=== PATIENT | female | born 1955 | race Caucasian/White ===

== ENCOUNTER 2018-05-17 14:41 | Emergency (ER) | payer MEDICAID ==
[~2018-05-17] VITALS: Ht 165.1 cm; Wt 148.1 kg
[~2018-05-17 14:41] MED LIST: ALBU6.7H INH; LEVO750T26 PO; PRED10TA14 PO; [UNRECOGNIZED DRUG - CODE] TP
[2018-05-17 14:43] VITALS: BP 144/87
[2018-05-17 15:16] LABS: BASOPHILS # (AUTO) 0.09 x10^3/uL (0-0.1); BASOPHILS % (AUTO) 1 % (0-1); EOSINOPHILS # (AUTO) 0.48 x10^3/uL (0-0.4); EOSINOPHILS % (AUTO) 5 % (1-7); LYMPHOCYTES # (AUTO) 2.25 x10^3/uL (1-3.4); LYMPHOCYTES % (AUTO) 23 % (22-44); MD NO; MEAN CORPUSCULAR HEMOGLOBIN 27.1 pg (27.0-34.8); MEAN CORPUSCULAR HGB CONC 32.9 g/dL (32.4-35.8); MEAN CORPUSCULAR VOLUME 82.5 fL (80-100); MEAN PLATELET VOLUME 9.6 fL (7.4-10.4); MONOCYTES # (AUTO) 0.74 x10^3/uL (0.2-0.8); MONOCYTES % (AUTO) 7 % (2-9); NEUTROPHILS # (AUTO) 6.43 x10^3/uL (1.8-6.8); NEUTROPHILS % (AUTO) 64 % (42-75); PLATELET COUNT 253 x10^3/uL (130-400); RED CELL DISTRIBUTION WIDTH 17.4 % (9.6-15.2)
[2018-05-17 15:27] LABS: ALANINE AMINOTRANSFERASE 19 U/L (12-78); ALBUMIN 3.4 g/dL (3.4-5.0); ANION GAP 8 mmol/L (5-15); CALCIUM 9.4 mg/dL (8.5-10.1); CHLORIDE 107 mmol/L (98-107); CREATININE 0.85 mg/dL (0.55-1.02)
[2018-05-17 15:30] LABS: ALKALINE PHOSPHATASE 115 U/L (45-117); BILIRUBIN,TOTAL 0.3 mg/dL (0.2-1.0)
== END 2018-05-17 17:30 | disposition home or self-care (01) ==
LOC: ED 17:06
DX: I89.0 Lymphedema, not elsewhere classified (principal); Z85.828 Personal history of other malignant neoplasm of skin
CPT/HCPCS: 36415; 80053; 85025; 99284

== ENCOUNTER 2019-05-19 08:21 | Emergency (ER) | payer MEDICARE, MEDICAID ==
[~2019-05-19] VITALS: Ht 175.3 cm; Wt 136.4 kg
[~2019-05-19 08:21] MED LIST changes: -ALBU6.7H INH; +ALBU6.7H8 INH
[2019-05-19 08:25] VITALS: BP 148/81
--- NOTE | 2019-05-19 08:31 | NUR ---
BIB EMS FOR C/O BILAT LOWER LEG CELLULITIS. WAS SEEN AT [facility] 2 DAYS AGO. WAS GIVEN RX FOR BACTRIM DS DID NOT FILL IT. HERE FOR AN ODOR AND WAS TOLD SHE COULDN'T RIDE THE BUS. ROMERO MANCILLA AT BEDSIDE FOR EVAL. PT RESTING ON GURNEY. NADN. VSS. WARM BLANKET PROVIDED.
--- NOTE | 2019-05-19 08:59 | NUR ---
PER ERP DR. DICKEY PT OKAY TO TAKE SHOWER. ALL SUPPLIES PROVIDED FOR PT. PT AMBULATORY W/ STEADY GAIT. CURRENTLY PT TAKING SHOWER.
[2019-05-19] MEDS ORDERED: SULFAMETH./TRIMETHOPRIM DS 800MG/160MG TABLET PO ONE (09:00)
[2019-05-19] MEDS ORDERED: SULFAMETH./TRIMETHOPRIM DS 800MG/160MG TABLET ONE (09:17)
--- NOTE | 2019-05-19 09:41 | NUR ---
PT BACK IN ROOM AFTER SHOWER. PT PROVIDED W/ TO GO MEAL TRAY. MEDICATED PER JUL. BUS PASS PROVIDED. DISCUSSED DC PAPERWORK. ALL QUESTIONS ANSWERED. PT AWARE OF POC FOR DC.
== END 2019-05-19 10:27 | disposition home or self-care (01) ==
LOC: ED 08:47
DX: L03.115 Cellulitis of right lower limb (principal); L03.116 Cellulitis of left lower limb; I25.2 Old myocardial infarction
CPT/HCPCS: 99283

== ENCOUNTER 2020-03-19 22:51 | Emergency (ER) | payer MEDICARE, MEDICAID ==
[~2020-03-19] VITALS: Ht 165.1 cm; Wt 161.8 kg
[~2020-03-19 22:51] MED LIST changes: +FLUT16SP24 NAS; +FURO20TA3 PO; +SULF1TAB24 PO; +TRAM50TA2 PO
[2020-03-19 23:35] LABS: BASOPHILS % (AUTO) 1 % (0-1); EOSINOPHILS % (AUTO) 6 % (1-7); LYMPHOCYTES % (AUTO) 24 % (22-44); MEAN CORPUSCULAR HEMOGLOBIN 27.3 pg (27.0-34.8); MEAN CORPUSCULAR HGB CONC 32.5 g/dL (32.4-35.8); MEAN PLATELET VOLUME 8.9 fL (7.4-10.4); MONOCYTES % (AUTO) 10 % (2-9); NEUTROPHILS % (AUTO) 60 % (42-75); PLATELET COUNT 243 x10^3/uL (130-400); RED BLOOD COUNT 4.93 x10^6/uL (3.82-5.3); RED CELL DISTRIBUTION WIDTH 16.5 % (9.6-15.2)
[2020-03-19 23:42] LABS: MD NO
--- NOTE | 2020-03-19 23:45 | NUR ---
65 YO CC OF R ANKLE AND FOOT PAIN WITH SWELLING AND WEEPING, WORSENING OVER LAST 4 DAYS. PT RECENTLY HERE FOR THE SAME THING. 01/06 PAIN.
[2020-03-19 23:47] LABS: ANION GAP 4 mmol/L (5-15); CALCIUM 9.9 mg/dL (8.5-10.1); CHLORIDE 107 mmol/L (98-107); CREATININE 0.75 mg/dL (0.55-1.02)
[2020-03-20] MEDS ORDERED: KETOROLAC 30 MG/1 ML IM ONE
[2020-03-20] MEDS ORDERED: KETOROLAC 30 MG/1 ML ONE (00:23)
--- NOTE | 2020-03-20 00:30 | NUR ---
US IN ROOM
[2020-03-20 01:30] VITALS: BP 112/59
--- NOTE | 2020-03-20 01:39 | NUR ---
TASK RN: PT ATTACHED TO VS MONITORS. PT PLACED ON 4L NC TO MAINTAIN OXYGEN SATURATION ABOVE 94%. PT VS UPDATED IN EMR.
[2020-03-20] MEDS ORDERED: NEOSPORIN OINT. PKT 1 PACKET ONE (02:25)
== END 2020-03-20 03:15 ==
LOC: ED 23:46
DX: S80.921A Unspecified superficial injury of right lower leg, initial encounter (principal); M79.89 Other specified soft tissue disorders; M79.661 Pain in right lower leg; I25.2 Old myocardial infarction; X58.XXXA Exposure to other specified factors, initial encounter; Y93.89 Activity, other specified; Y92.89 Other specified places as the place of occurrence of the external cause; Y99.8 Other external cause status
CPT/HCPCS: 36415; 80048; 85025; 93971; 96372; 99284; J1885

== ENCOUNTER 2020-03-20 23:39 | Emergency (ER) | payer MEDICARE, MEDICAID ==
[~2020-03-20] VITALS: Ht 177.8 cm; Wt 150.0 kg
[2020-03-20 23:44] VITALS: BP 138/91
--- NOTE | 2020-03-21 00:18 | NUR ---
PT AMBULATORY TO ROOM AT THIS TIME, [employer]
--- NOTE | 2020-03-21 00:49 | NUR ---
Drsg placed on pt wound on RLE.
--- NOTE | 2020-03-21 01:30 | NUR ---
PT D/C WITH D/C SUMMARY. PT VERBALIZES UNDERSTANDING OF NEED TO FOLLOW UP WITH PCP DR GOODE. NUMBER PROVIDED TO DR GOODE PER PT REQUEST. PT DENIES ANY OTHER NEEDS PERTAINING TO THIS VISIT AND WHEELS TO REGISTRATION DESK IN WHEELCHAIR FOR D/C HOME.
== END 2020-03-21 01:34 | disposition home or self-care (01) ==
LOC: ED 03-21 00:25
DX: M79.661 Pain in right lower leg (principal); I87.2 Venous insufficiency (chronic) (peripheral); R60.0 Localized edema; I25.2 Old myocardial infarction
CPT/HCPCS: 99283

== ENCOUNTER 2020-04-15 20:17 | Emergency (ER) | payer MEDICARE, MEDICAID ==
[~2020-04-15] VITALS: Ht 175.3 cm; Wt 158.0 kg
[2020-04-15 22:12] LABS: BASOPHILS % (AUTO) 1 % (0-1); EOSINOPHILS % (AUTO) 4 % (1-7); LYMPHOCYTES % (AUTO) 21 % (22-44); MEAN CORPUSCULAR HEMOGLOBIN 27.5 pg (27.0-34.8); MEAN CORPUSCULAR HGB CONC 32.6 g/dL (32.4-35.8); MEAN PLATELET VOLUME 8.8 fL (7.4-10.4); MONOCYTES % (AUTO) 9 % (2-9); NEUTROPHILS % (AUTO) 65 % (42-75); PLATELET COUNT 284 x10^3/uL (130-400); RED CELL DISTRIBUTION WIDTH 16.7 % (9.6-15.2)
[2020-04-15 22:14] LABS: MD NO
[2020-04-15 22:16] LABS: ALANINE AMINOTRANSFERASE 23 U/L (12-78); ALBUMIN 3.3 g/dL (3.4-5.0); ANION GAP 5 mmol/L (5-15); CALCIUM 9.6 mg/dL (8.5-10.1); CHLORIDE 106 mmol/L (98-107); CREATININE 0.71 mg/dL (0.55-1.02)
[2020-04-15 22:18] LABS: ALKALINE PHOSPHATASE 88 U/L (45-117); BILIRUBIN,TOTAL 0.7 mg/dL (0.2-1.0); TOTAL PROTEIN 8.5 g/dL (6.4-8.2)
--- NOTE | 2020-04-15 22:25 | NUR ---
handyx1
--- NOTE | 2020-04-15 23:05 | NUR ---
pt to room from lobby
--- NOTE | 2020-04-15 23:40 | NUR ---
pt here for pain and scaling on lower leg. md at bedside.
--- NOTE | 2020-04-16 00:15 | NUR ---
pt given clean socks and wound cleaned and bandaged. vss. Pt verbalized understanding of discharge papers. pt getting dressed
[2020-04-16 00:48] VITALS: BP 145/97
== END 2020-04-16 00:50 | disposition home or self-care (01) ==
LOC: ED 23:56
DX: R60.0 Localized edema (principal); I25.2 Old myocardial infarction
CPT/HCPCS: 36415; 80053; 85025; 99284

== ENCOUNTER 2020-07-12 22:25 | Emergency (ER) | payer MEDICAID, MEDICARE ==
[~2020-07-12] VITALS: Ht 177.8 cm; Wt 147.7 kg
--- NOTE | 2020-07-12 22:36 | NUR ---
bib ems. pt has increased swelling in her lower extremities and has been oozing blood per patient. swelling present for last 4 years and worse in the last couple days per pt. pt able to undress herself and walk steady to bed. vss, erp at bedside
--- NOTE | 2020-07-12 22:53 | NUR ---
LAB AT BEDSIDE
[2020-07-12 23:14] LABS: ALBUMIN 3.4 g/dL (3.4-5.0); ANION GAP 7 mmol/L (5-15); CALCIUM 9.5 mg/dL (8.5-10.1); CHLORIDE 107 mmol/L (98-107)
[2020-07-12 23:18] LABS: BASOPHILS % (AUTO) 1 % (0-1); EOSINOPHILS % (AUTO) 2 % (1-7); LYMPHOCYTES % (AUTO) 27 % (22-44); MD NO; MEAN CORPUSCULAR HGB CONC 33.2 g/dL (32.4-35.8); MONOCYTES % (AUTO) 10 % (2-9); NEUTROPHILS % (AUTO) 60 % (42-75); PLATELET COUNT 277 x10^3/uL (130-400); RED BLOOD COUNT 5.06 x10^6/uL (3.82-5.3); RED CELL DISTRIBUTION WIDTH 16.7 % (9.6-15.2)
[2020-07-13] VITALS: BP 162/85
--- NOTE | 2020-07-13 | NUR ---
PT UNDERSTANDING OF D/C INSTRUCTIONS, ALL QUESTIONS ANSWERED. REINFORCED FACT THAT PATIENT NEEDS TO KEEP LEGS CLEAN. PT INDEPENDENT GETTING READY AND STEADY AMBULATING.
--- NOTE | 2020-07-13 00:15 | NUR ---
PT AMBULATED TO RESTROOM, WAITING FOR HER TO COME BACK TO FINISH CHANGING AND GET D/C INSTRUCTIONS
== END 2020-07-13 00:51 | disposition home or self-care (01) ==
LOC: ED 07-13 00:45
DX: M79.661 Pain in right lower leg (principal); M79.662 Pain in left lower leg; I25.2 Old myocardial infarction
CPT/HCPCS: 36415; 80048; 82040; 85025; 93970; 99284

== ENCOUNTER 2020-08-23 14:59 | Emergency (ER) | payer MEDICARE, MEDICAID ==
[~2020-08-23] VITALS: Ht 165.1 cm; Wt 147.0 kg
[2020-08-23 15:04] VITALS: BP 101/48
[2020-08-23 15:44] LABS: BASOPHILS % (AUTO) 1 % (0-1); EOSINOPHILS % (AUTO) 3 % (1-7); LYMPHOCYTES % (AUTO) 25 % (22-44); MEAN CORPUSCULAR HEMOGLOBIN 27.5 pg (27.0-34.8); MEAN PLATELET VOLUME 9.2 fL (7.4-10.4); MONOCYTES % (AUTO) 6 % (2-9); NEUTROPHILS % (AUTO) 65 % (42-75); PLATELET COUNT 259 x10^3/uL (130-400); RED BLOOD COUNT 5.38 x10^6/uL (3.82-5.3); RED CELL DISTRIBUTION WIDTH 16.9 % (9.6-15.2)
[2020-08-23 15:45] LABS: MD NO
[2020-08-23 15:52] LABS: ALBUMIN 3.3 g/dL (3.4-5.0); ANION GAP 4 mmol/L (5-15); CALCIUM 9.3 mg/dL (8.5-10.1); CHLORIDE 108 mmol/L (98-107); CREATININE 0.83 mg/dL (0.55-1.02)
--- NOTE | 2020-08-23 15:55 | NUR ---
shorthand teacher note: Pt to room from lobby.
== END 2020-08-23 16:53 ==
LOC: ED 16:22
DX: L03.115 Cellulitis of right lower limb (principal); M79.661 Pain in right lower leg; L97.911 Non-pressure chronic ulcer of unspecified part of right lower leg limited to breakdown of skin; E66.01 Morbid (severe) obesity due to excess calories; Z68.43 Body mass index [BMI] 50.0-59.9, adult
CPT/HCPCS: 36415; 80048; 82040; 85025; 99283; 99284

== ENCOUNTER 2020-10-25 14:10 | Emergency (ER) | payer MEDICAID, MEDICARE ==
[~2020-10-25] VITALS: Ht 177.8 cm; Wt 150.0 kg
[~2020-10-25 14:10] MED LIST changes: +SULF-23 PO; -SULF1TAB24 PO
[2020-10-25 14:18] VITALS: BP 109/45
[2020-10-25 14:48] LABS: BASOPHILS % (AUTO) 1 % (0-1); EOSINOPHILS % (AUTO) 4 % (1-7); LYMPHOCYTES % (AUTO) 25 % (22-44); MEAN CORPUSCULAR HEMOGLOBIN 28.7 pg (27.0-34.8); MEAN CORPUSCULAR HGB CONC 33.9 g/dL (32.4-35.8); MEAN PLATELET VOLUME 8.9 fL (7.4-10.4); MONOCYTES % (AUTO) 9 % (2-9); NEUTROPHILS % (AUTO) 62 % (42-75); PLATELET COUNT 263 x10^3/uL (130-400); RED BLOOD COUNT 4.92 x10^6/uL (3.82-5.3); RED CELL DISTRIBUTION WIDTH 16.2 % (9.6-15.2)
[2020-10-25 14:49] LABS: MD NO
[2020-10-25 15:00] LABS: ALBUMIN 3.1 g/dL (3.4-5.0); ANION GAP 5 mmol/L (5-15); CALCIUM 9.1 mg/dL (8.5-10.1); CHLORIDE 108 mmol/L (98-107); CREATININE 0.76 mg/dL (0.55-1.02)
--- NOTE | 2020-10-25 17:45 | NUR ---
EMPLOYEE RELATIONS REPRESENTATIVE: PT TO ROOM FROM LOBBY
--- NOTE | 2020-10-25 17:59 | NUR ---
PT TO ROOM FROM LOBBY, PT STATES SHE IS GOING TO THE HOSPITAL FOR HER "ABBIE CANCER." PT ALSO STATES HER MD TOLD HER THAT HER CELIAC DISEASE TURNS INTO ABBIE CANCER AND HOW HER LEG PRESENTS.
--- NOTE | 2020-10-25 18:41 | NUR ---
Patient given discharge instructions and they have confirmed that they understand the instructions. Patient ambulatory with steady gait.
== END 2020-10-25 18:44 | disposition home or self-care (01) ==
LOC: ED 18:26
DX: L89.892 Pressure ulcer of other site, stage 2 (principal); Z72.9 Problem related to lifestyle, unspecified; I25.2 Old myocardial infarction
CPT/HCPCS: 36415; 80048; 82040; 85025; 93005; 99284

== ENCOUNTER 2021-01-25 19:10 | Inpatient (IN) | payer MEDICARE, MEDICAID ==
[~2021-01-25] VITALS: Ht 177.8 cm; Wt 154.5 kg
[~2021-01-25 19:10] MED LIST changes: +FURO40TA6 PO; +POTA20TA14 PO
--- NOTE | 2021-01-25 19:58 | NUR ---
PT BIB EMS FOR LOWER LEG WOUND WITH MAGGOT INFESTATION. PT DECONED. "I NOTICED A FEW DAYS AGO THE SKIN WAS RAISED AND BUMBY AND THEN ABOUT 2 DAYS AGO I STARTED TO SEE THE MAGGOTS. I SCRAPED OFF MAYBE A THOUSAND TODAY". PT RESTING IN [facility]. BEDSIDE FOR ASSESSMENT. CONNECTED TO MONITORING EQUIPMENT
[2021-01-25] MEDS ORDERED: PIPERACILLIN/TAZO 4.5 GM in SODIUM CHLORIDE 0.9% 100 ML IVPB ONE (20:00)
[2021-01-25] MEDS ORDERED: ONDANSETRON 2MG/ML, 2ML IVPush ONE (20:00)
[2021-01-25] MEDS ORDERED: DIPH,PERTUSS(ACELL),TET VAC/PF 0.5 ML IM-VACC ONE ×2 (20:00→20:47)
[2021-01-25] MEDS ORDERED: MORPHINE SULFATE 4 MG/ML, 1ML IV PRN (20:00)
[2021-01-25] MEDS ORDERED: VANCOMYCIN PER PHARMACY MC ONE (20:00)
[2021-01-25] MEDS ORDERED: SODIUM CHLORIDE FLUSH 10ML SYR IVF ONE (20:00)
[2021-01-25] MEDS ORDERED: PLEASE ENTER HEIGHT AND WEIGHT MC SCH (20:30)
[2021-01-25] MEDS ORDERED: ONDANSETRON 2MG/ML, 2ML ONE (20:46)
[2021-01-25] MEDS ORDERED: MORPHINE SULFATE 4 MG/ML, 1ML ONE (20:47)
[2021-01-25 21:08] LABS: BASOPHILS % (AUTO) 1 % (0-1); EOSINOPHILS % (AUTO) 5 % (1-7); LYMPHOCYTES % (AUTO) 22 % (22-44); MEAN CORPUSCULAR HEMOGLOBIN 27.1 pg (27.0-34.8); MEAN CORPUSCULAR HGB CONC 32.5 g/dL (32.4-35.8); MEAN PLATELET VOLUME 8.5 fL (7.4-10.4); MONOCYTES % (AUTO) 9 % (2-9); NEUTROPHILS % (AUTO) 62 % (42-75); PLATELET COUNT 285 x10^3/uL (130-400); RED BLOOD COUNT 4.58 x10^6/uL (3.82-5.3); RED CELL DISTRIBUTION WIDTH 16.5 % (9.6-15.2)
[2021-01-25 21:16] LABS: ALANINE AMINOTRANSFERASE 17 U/L (12-78); ALBUMIN 2.8 g/dL (3.4-5.0); ANION GAP 4 mmol/L (5-15); CALCIUM 9.4 mg/dL (8.5-10.1); CHLORIDE 104 mmol/L (98-107)
--- NOTE | 2021-01-25 21:16 | NUR ---
pt o2 desat. placed on 2 liters via nc
[2021-01-25 21:19] LABS: ALKALINE PHOSPHATASE 102 U/L (45-117); BILIRUBIN,TOTAL 0.6 mg/dL (0.2-1.0); CREATININE 0.71 mg/dL (0.55-1.02); TOTAL PROTEIN 8.4 g/dL (6.4-8.2)
[2021-01-25] MEDS ORDERED: VANCOMYCIN 2,500 MG in SODIUM CHLORIDE 0.9% 500 ML IV ONE (21:30)
[2021-01-25] MEDS ORDERED: PIPERACILLIN/TAZO 4.5 GM in DEXTROSE 5% 100 ML IVPB ONE (21:30)
[2021-01-25] MEDS ORDERED: SODIUM CHLORIDE FLUSH 10ML SYR IVF PRN (21:30)
[2021-01-25] MEDS ORDERED: VANCOMYCIN PER PHARMACY MC PRN (22:00)
[2021-01-25] MEDS ORDERED: ACETAMINOPHEN 325 MG TABLET PO PRN (22:00)
[2021-01-25] MEDS ORDERED: LABETALOL 5MG/ML, 20ML IVPush PRN (22:00)
[2021-01-25] MEDS ORDERED: ONDANSETRON 2MG/ML, 2ML IVPush PRN (22:00)
[2021-01-25] MEDS ORDERED: PHARMACOKINETIC MONITORING MC PRN (22:30)
[2021-01-25] MEDS ORDERED: PHARMACOKINETIC CONSULTATION MC ONE (22:30)
[2021-01-25 23:00] VITALS: BP 124/51
[2021-01-26 01:04] VITALS: BP 117/58
[2021-01-26] MEDS: PIPERACILLIN/TAZO 3.375 GM in DEXTROSE 5% 50 ML IV SCH ×4 (03:42→21:42)
[2021-01-26] MEDS: ENOXAPARIN 30 MG/0.3 ML SQ SCH ×2 (05:18→16:46)
[2021-01-26 06:47] LABS: BASOPHILS % (AUTO) 0 % (0-1); EOSINOPHILS % (AUTO) 1 % (1-7); LYMPHOCYTES % (AUTO) 9 % (22-44); MEAN CORPUSCULAR HEMOGLOBIN 27.1 pg (27.0-34.8); MEAN CORPUSCULAR HGB CONC 32.5 g/dL (32.4-35.8); MEAN PLATELET VOLUME 8.4 fL (7.4-10.4); MONOCYTES % (AUTO) 6 % (2-9); NEUTROPHILS % (AUTO) 83 % (42-75); PLATELET COUNT 203 x10^3/uL (130-400); RED BLOOD COUNT 4.52 x10^6/uL (3.82-5.3); RED CELL DISTRIBUTION WIDTH 16.4 % (9.6-15.2)
[2021-01-26 06:56] LABS: ANION GAP 3 mmol/L (5-15); CALCIUM 8.6 mg/dL (8.5-10.1); CHLORIDE 105 mmol/L (98-107)
[2021-01-26 06:58] LABS: CREATININE 0.75 mg/dL (0.55-1.02)
[2021-01-26 07:15] VITALS: BP 123/64
[2021-01-26] MEDS: SENNA/DOCUSATE TABLET PO SCH (08:29)
[2021-01-26] MEDS ORDERED: VANCOMYCIN 2,000 MG in SODIUM CHLORIDE 0.9% 500 ML IV SCH (10:00)
--- NOTE | 2021-01-26 10:49 | NUR ---
RANI MENDOZA Fall Risk Medication(s) present and receiving anticoagulants. Signed: 01/26/21 at 1050 by Jessee PAZ
[2021-01-26 13:32] VITALS: BP 119/62
[2021-01-26] MEDS: VANCOMYCIN 2,200 MG in SODIUM CHLORIDE 0.9% 500 ML IV SCH (17:56)
[2021-01-26 20:45] VITALS: BP 108/46
[2021-01-27 03:32] VITALS: BP 118/57
[2021-01-27] MEDS: PIPERACILLIN/TAZO 3.375 GM in DEXTROSE 5% 50 ML IV SCH (04:16)
[2021-01-27 05:02] LABS: BASOPHILS % (AUTO) 1 % (0-1); EOSINOPHILS % (AUTO) 2 % (1-7); LYMPHOCYTES % (AUTO) 14 % (22-44); MEAN CORPUSCULAR HEMOGLOBIN 27.6 pg (27.0-34.8); MEAN PLATELET VOLUME 8.1 fL (7.4-10.4); MONOCYTES % (AUTO) 11 % (2-9); NEUTROPHILS % (AUTO) 71 % (42-75); PLATELET COUNT 153 x10^3/uL (130-400); RED BLOOD COUNT 3.98 x10^6/uL (3.82-5.3); RED CELL DISTRIBUTION WIDTH 16.4 % (9.6-15.2)
[2021-01-27] MEDS: ENOXAPARIN 30 MG/0.3 ML SQ SCH ×2 (05:02→17:51)
[2021-01-27 05:13] LABS: ANION GAP 2 mmol/L (5-15); CALCIUM 8.4 mg/dL (8.5-10.1); CHLORIDE 103 mmol/L (98-107)
[2021-01-27 05:17] LABS: ALANINE AMINOTRANSFERASE 16 U/L (12-78); ALKALINE PHOSPHATASE 61 U/L (45-117); BILIRUBIN,TOTAL 0.8 mg/dL (0.2-1.0); CREATININE 0.73 mg/dL (0.55-1.02)
[2021-01-27 07:15] VITALS: BP 102/56
[2021-01-27] MEDS: SENNA/DOCUSATE TABLET PO SCH (09:47)
[2021-01-27] MEDS: AMPICILLIN/SULBACTAM 1,500 MG in SODIUM CHLORIDE 0.9% 50 ML IV SCH ×2 (11:57→17:55)
[2021-01-27] MEDS: DAKIN'S SOLUTION 1/4 STRENGTH 1,000 ML IRRIG SOLN EXT SCH (11:57)
[2021-01-27] MEDS: VANCOMYCIN 2,200 MG in SODIUM CHLORIDE 0.9% 500 ML IV SCH (12:58)
[2021-01-27 13:42] VITALS: BP 114/57
[2021-01-27 20:26] VITALS: BP 121/76
[2021-01-27] MEDS: morphine SULFATE 10 MG/ML, 1ML IVPush PRN (21:21)
[2021-01-28 01:27] VITALS: BP 133/74
[2021-01-28] MEDS: DAKIN'S SOLUTION 1/4 STRENGTH 1,000 ML IRRIG SOLN EXT SCH ×2 (02:30→09:00)
[2021-01-28] MEDS: morphine SULFATE 10 MG/ML, 1ML IVPush PRN ×3 (02:33→11:26)
[2021-01-28] MEDS: AMPICILLIN/SULBACTAM 1,500 MG in SODIUM CHLORIDE 0.9% 50 ML IV SCH ×2 (02:33→10:05)
[2021-01-28] MEDS: ENOXAPARIN 30 MG/0.3 ML SQ SCH ×2 (05:29→18:35)
[2021-01-28 06:14] LABS: BASOPHILS % (AUTO) 1 % (0-1); EOSINOPHILS % (AUTO) 8 % (1-7); LYMPHOCYTES % (AUTO) 13 % (22-44); MEAN CORPUSCULAR HEMOGLOBIN 27.5 pg (27.0-34.8); MEAN CORPUSCULAR HGB CONC 32.8 g/dL (32.4-35.8); MEAN PLATELET VOLUME 8.6 fL (7.4-10.4); MONOCYTES % (AUTO) 11 % (2-9); NEUTROPHILS % (AUTO) 67 % (42-75); PLATELET COUNT 184 x10^3/uL (130-400); RED BLOOD COUNT 4.17 x10^6/uL (3.82-5.3)
[2021-01-28 06:28] LABS: ALBUMIN 2.2 g/dL (3.4-5.0); CALCIUM 8.9 mg/dL (8.5-10.1)
[2021-01-28 06:33] LABS: ALANINE AMINOTRANSFERASE 25 U/L (12-78); ALKALINE PHOSPHATASE 67 U/L (45-117); BILIRUBIN,TOTAL 0.6 mg/dL (0.2-1.0); CREATININE 0.73 mg/dL (0.55-1.02); TOTAL PROTEIN 7.6 g/dL (6.4-8.2); VANCOMYCIN,TROUGH 13.7 mcg/mL (5.0-10.0)
[2021-01-28 06:43] LABS: ANION GAP 4 mmol/L (5-15); CHLORIDE 103 mmol/L (98-107)
[2021-01-28 09:36] VITALS: BP 124/59
[2021-01-28] MEDS: SENNA/DOCUSATE TABLET PO SCH (10:05)
[2021-01-28] MEDS: FUROSEMIDE 40 MG/4 ML IV SCH (10:22)
[2021-01-28] MEDS: GABAPENTIN 300 MG CAPSULE PO PRN (10:23)
[2021-01-28 11:14] VITALS: BP 113/37
[2021-01-28] MEDS: AMPICILLIN/SULBACTAM 3 GM in SODIUM CHLORIDE 0.9% 100 ML IV SCH ×2 (13:44→18:35)
[2021-01-28 14:40] VITALS: BP 118/66
[2021-01-28 19:07] VITALS: BP 125/83
[2021-01-29 00:27] VITALS: BP 108/66
[2021-01-29] MEDS: DAKIN'S SOLUTION 1/4 STRENGTH 1,000 ML IRRIG SOLN EXT SCH ×3 (00:56→21:15)
[2021-01-29] MEDS: AMPICILLIN/SULBACTAM 3 GM in SODIUM CHLORIDE 0.9% 100 ML IV SCH ×4 (00:56→22:22)
[2021-01-29] MEDS: ENOXAPARIN 30 MG/0.3 ML SQ SCH (06:30)
[2021-01-29 06:53] LABS: BASOPHILS % (AUTO) 1 % (0-1); EOSINOPHILS % (AUTO) 8 % (1-7); HCT (SEDRATE) 35.1 % (34.6-47.8); LYMPHOCYTES % (AUTO) 21 % (22-44); MEAN CORPUSCULAR HEMOGLOBIN 26.9 pg (27.0-34.8); MEAN CORPUSCULAR HGB CONC 32.5 g/dL (32.4-35.8); MEAN PLATELET VOLUME 8.6 fL (7.4-10.4); MONOCYTES % (AUTO) 15 % (2-9); NEUTROPHILS % (AUTO) 56 % (42-75); PLATELET COUNT 195 x10^3/uL (130-400); RED BLOOD COUNT 4.24 x10^6/uL (3.82-5.3); RED CELL DISTRIBUTION WIDTH 16.3 % (9.6-15.2)
[2021-01-29 07:04] LABS: ALBUMIN 2.2 g/dL (3.4-5.0); ANION GAP 5 mmol/L (5-15); CALCIUM 9.3 mg/dL (8.5-10.1); CHLORIDE 101 mmol/L (98-107)
[2021-01-29 07:14] LABS: ALANINE AMINOTRANSFERASE 20 U/L (12-78); ALKALINE PHOSPHATASE 67 U/L (45-117); BILIRUBIN,TOTAL 0.8 mg/dL (0.2-1.0); CREATININE 0.66 mg/dL (0.55-1.02); TOTAL PROTEIN 7.5 g/dL (6.4-8.2)
[2021-01-29 07:58] VITALS: BP 135/76
[2021-01-29] MEDS: FUROSEMIDE 40 MG/4 ML IV SCH (09:00)
[2021-01-29] MEDS: SENNA/DOCUSATE TABLET PO SCH (10:17)
[2021-01-29 10:18] VITALS: BP 98/50
[2021-01-29 12:24] VITALS: BP 138/72
[2021-01-29] MEDS: ENOXAPARIN 40 MG/0.4 ML SQ SCH (18:00)
[2021-01-29 18:54] VITALS: BP 113/68
[2021-01-29] MEDS: GABAPENTIN 300 MG CAPSULE PO PRN (21:15)
[2021-01-30 00:36] VITALS: BP 120/71
[2021-01-30] MEDS: AMPICILLIN/SULBACTAM 3 GM in SODIUM CHLORIDE 0.9% 100 ML IV SCH ×4 (04:01→22:19)
[2021-01-30] MEDS: ENOXAPARIN 40 MG/0.4 ML SQ SCH ×2 (06:00→18:00)
[2021-01-30 08:00] VITALS: BP 122/71
[2021-01-30] MEDS: SENNA/DOCUSATE TABLET PO SCH (10:14)
[2021-01-30] MEDS: DAKIN'S SOLUTION 1/4 STRENGTH 1,000 ML IRRIG SOLN EXT SCH ×2 (10:14→21:00)
[2021-01-30] MEDS: FUROSEMIDE 40 MG/4 ML IV SCH (10:32)
[2021-01-30 13:01] VITALS: BP 124/70
[2021-01-30] MEDS: morphine SULFATE 10 MG/ML, 1ML IVPush PRN ×2 (15:38→18:48)
[2021-01-30 19:58] VITALS: BP 107/65
[2021-01-31 01:03] VITALS: BP 116/69
[2021-01-31] MEDS: AMPICILLIN/SULBACTAM 3 GM in SODIUM CHLORIDE 0.9% 100 ML IV SCH ×4 (03:49→22:41)
[2021-01-31] MEDS: ENOXAPARIN 40 MG/0.4 ML SQ SCH ×2 (06:00→18:00)
[2021-01-31 07:50] VITALS: BP 128/70
[2021-01-31] MEDS: SENNA/DOCUSATE TABLET PO SCH (09:00)
[2021-01-31] MEDS: FUROSEMIDE 40 MG/4 ML IV SCH (10:08)
[2021-01-31] MEDS: DAKIN'S SOLUTION 1/4 STRENGTH 1,000 ML IRRIG SOLN EXT SCH ×2 (10:10→22:49)
[2021-01-31 14:53] VITALS: BP 132/60
[2021-01-31 20:47] VITALS: BP 137/58
[2021-01-31] MEDS: GABAPENTIN 300 MG CAPSULE PO PRN (20:58)
[2021-02-01 02:33] VITALS: BP 144/65
[2021-02-01] MEDS: AMPICILLIN/SULBACTAM 3 GM in SODIUM CHLORIDE 0.9% 100 ML IV SCH ×4 (04:00→22:17)
[2021-02-01] MEDS: ENOXAPARIN 40 MG/0.4 ML SQ SCH ×2 (06:05→18:06)
[2021-02-01] MEDS: SENNA/DOCUSATE TABLET PO SCH (07:55)
[2021-02-01] MEDS: DAKIN'S SOLUTION 1/4 STRENGTH 1,000 ML IRRIG SOLN EXT SCH ×2 (07:55→21:00)
[2021-02-01 08:17] VITALS: BP 116/73
[2021-02-01] MEDS: FUROSEMIDE 40 MG/4 ML IV SCH ×2 (10:48→11:38)
[2021-02-01 13:09] VITALS: BP 118/78
[2021-02-01] MEDS: GABAPENTIN 300 MG CAPSULE PO PRN (15:55)
[2021-02-01 19:58] VITALS: BP 147/81
[2021-02-02 01:05] VITALS: BP 148/76
[2021-02-02] MEDS: AMPICILLIN/SULBACTAM 3 GM in SODIUM CHLORIDE 0.9% 100 ML IV SCH ×4 (04:18→21:56)
[2021-02-02 06:10] LABS: BASOPHILS % (AUTO) 1 % (0-1); EOSINOPHILS % (AUTO) 9 % (1-7); LYMPHOCYTES % (AUTO) 25 % (22-44); MEAN CORPUSCULAR HEMOGLOBIN 26.9 pg (27.0-34.8); MEAN CORPUSCULAR HGB CONC 32.6 g/dL (32.4-35.8); MEAN PLATELET VOLUME 8.3 fL (7.4-10.4); MONOCYTES % (AUTO) 9 % (2-9); NEUTROPHILS % (AUTO) 57 % (42-75); PLATELET COUNT 320 x10^3/uL (130-400); RED CELL DISTRIBUTION WIDTH 17.1 % (9.6-15.2)
[2021-02-02 06:18] LABS: CHLORIDE 102 mmol/L (98-107)
[2021-02-02] MEDS: ENOXAPARIN 40 MG/0.4 ML SQ SCH ×2 (06:22→17:55)
[2021-02-02 06:36] LABS: ALANINE AMINOTRANSFERASE 32 U/L (12-78); ALBUMIN 2.4 g/dL (3.4-5.0); ALKALINE PHOSPHATASE 77 U/L (45-117); ANION GAP 5 mmol/L (5-15); BILIRUBIN,TOTAL 0.4 mg/dL (0.2-1.0); CALCIUM 9.6 mg/dL (8.5-10.1); CREATININE 0.78 mg/dL (0.55-1.02)
[2021-02-02 06:44] LABS: HCT (SEDRATE) 38.8 % (34.6-47.8)
[2021-02-02 06:58] VITALS: BP 128/89
[2021-02-02] MEDS: SENNA/DOCUSATE TABLET PO SCH (10:33)
[2021-02-02] MEDS: FUROSEMIDE 40 MG/4 ML IV SCH (10:33)
[2021-02-02] MEDS: DAKIN'S SOLUTION 1/4 STRENGTH 1,000 ML IRRIG SOLN EXT SCH ×2 (10:34→21:00)
[2021-02-02 12:59] VITALS: BP 136/85
[2021-02-02] MEDS: morphine SULFATE 10 MG/ML, 1ML IVPush PRN (13:22)
[2021-02-02 19:34] VITALS: BP 112/70
[2021-02-03 00:13] VITALS: BP 121/74
[2021-02-03] MEDS: AMPICILLIN/SULBACTAM 3 GM in SODIUM CHLORIDE 0.9% 100 ML IV SCH ×2 (03:45→09:17)
[2021-02-03] MEDS: ENOXAPARIN 40 MG/0.4 ML SQ SCH ×2 (05:23→17:42)
[2021-02-03 07:25] VITALS: BP 122/69
[2021-02-03] MEDS: FUROSEMIDE 40 MG/4 ML IV SCH (09:17)
[2021-02-03] MEDS: SENNA/DOCUSATE TABLET PO SCH (09:17)
[2021-02-03] MEDS: DAKIN'S SOLUTION 1/4 STRENGTH 1,000 ML IRRIG SOLN EXT SCH (09:18)
[2021-02-03 12:56] VITALS: BP 134/74
[2021-02-03] MEDS ORDERED: AMOX1TAB12 PO (13:36)
[2021-02-03 18:41] VITALS: BP 123/74
[2021-02-03] MEDS: AMOXICILLIN/CLAV 875-125MG TABLET PO SCH (20:37)
[2021-02-04 00:25] VITALS: BP 97/68
[2021-02-04] MEDS: ENOXAPARIN 40 MG/0.4 ML SQ SCH (05:49)
[2021-02-04 06:52] VITALS: BP 127/75
[2021-02-04] MEDS: FUROSEMIDE 40 MG/4 ML IV SCH (09:11)
[2021-02-04] MEDS: AMOXICILLIN/CLAV 875-125MG TABLET PO SCH ×2 (09:11→20:32)
[2021-02-04] MEDS: SENNA/DOCUSATE TABLET PO SCH (09:11)
[2021-02-04 12:57] VITALS: BP 116/69
[2021-02-04 18:24] VITALS: BP 105/68
[2021-02-05 00:49] VITALS: BP 138/68
[2021-02-05 07:14] VITALS: BP 104/62
[2021-02-05] MEDS: SENNA/DOCUSATE TABLET PO SCH ×2 (09:00→13:59)
[2021-02-05] MEDS: AMOXICILLIN/CLAV 875-125MG TABLET PO SCH ×2 (09:35→21:25)
[2021-02-05] MEDS: ENOXAPARIN 40 MG/0.4 ML SQ SCH (09:35)
[2021-02-05 13:52] VITALS: BP 127/70
[2021-02-05] MEDS: FUROSEMIDE 20 MG TABLET PO SCH (13:59)
[2021-02-05] MEDS: GABAPENTIN 300 MG CAPSULE PO PRN (20:13)
[2021-02-05 20:23] VITALS: BP 100/62
[2021-02-06 01:24] VITALS: BP 109/69
[2021-02-06 06:05] LABS: CREATININE 0.85 mg/dL (0.55-1.02)
[2021-02-06 07:49] VITALS: BP 118/78
[2021-02-06] MEDS: ENOXAPARIN 40 MG/0.4 ML SQ SCH (08:22)
[2021-02-06] MEDS: SENNA/DOCUSATE TABLET PO SCH (08:22)
[2021-02-06] MEDS: FUROSEMIDE 20 MG TABLET PO SCH (08:22)
[2021-02-06] MEDS: AMOXICILLIN/CLAV 875-125MG TABLET PO SCH (08:22)
== END 2021-02-06 15:21 | disposition home or self-care (01) | DRG 871 ==
LOC: ED 21:00 → 3N 21:21
PROVIDERS: ADMIT Family Medicine; ATTEND Internal Medicine
DX: A41.9 Sepsis, unspecified organism (principal); I50.33 Acute on chronic diastolic (congestive) heart failure; J96.01 Acute respiratory failure with hypoxia; L03.115 Cellulitis of right lower limb; Z68.42 Body mass index [BMI] 45.0-49.9, adult; E87.1 Hypo-osmolality and hyponatremia; E66.2 Morbid (severe) obesity with alveolar hypoventilation; F03.90 Unspecified dementia, unspecified severity, without behavioral disturbance, psychotic disturbance, mood disturbance, and anxiety; E88.09 Other disorders of plasma-protein metabolism, not elsewhere classified; B87.9 Myiasis, unspecified; I25.2 Old myocardial infarction; I87.8 Other specified disorders of veins; Z59.0 Homelessness
CPT/HCPCS: 36415; 72170; 80048; 80053; 80202; 82565; 83605; 83880; 85025; 85651; 86140; 87040; 87081; 90471; 90715; 96374; 96375; G0378; J0295; J1650; J1940; J2405; J2543; J3370; J2270; J7040

== ENCOUNTER 2021-02-09 09:40 | Outpatient (CLI) | payer MEDICARE, MEDICAID ==
[~2021-02-09 09:40] MED LIST changes: +AMOX1TAB12 PO
== END 2021-02-09 23:59 | disposition home or self-care (01) ==
LOC: WOUND 09:40
PROVIDERS: ATTEND Internal Medicine
DX: I87.333 Chronic venous hypertension (idiopathic) with ulcer and inflammation of bilateral lower extremity (principal); L97.212 Non-pressure chronic ulcer of right calf with fat layer exposed; L97.222 Non-pressure chronic ulcer of left calf with fat layer exposed; I89.0 Lymphedema, not elsewhere classified; E66.2 Morbid (severe) obesity with alveolar hypoventilation; I25.2 Old myocardial infarction; F03.90 Unspecified dementia, unspecified severity, without behavioral disturbance, psychotic disturbance, mood disturbance, and anxiety; I11.0 Hypertensive heart disease with heart failure; I50.33 Acute on chronic diastolic (congestive) heart failure; Z88.5 Allergy status to narcotic agent; Z68.42 Body mass index [BMI] 45.0-49.9, adult
CPT/HCPCS: 29581; G0463; 99215